=== PATIENT | male | born 1965 | race Caucasian/White ===

== ENCOUNTER 2019-08-23 18:57 | Emergency (ER) | payer SELFPAY ==
[2019-08-23 18:58] VITALS: BP 158/110; PULSE 74; RESP 16; TEMP 36.7; O2SAT 97; BMI 37.1
--- NOTE | 2019-08-23 19:49 | CT_ITS ---
STUDY: CT ABDOMEN AND PELVIS WITH CONTRAST REASON FOR EXAM: Male, 54 years old. PT STATED RT FLANK PAIN WITH LOWER ABDOM PAIN RADIATION DOSAGE (If Supplied By Facility): CTDIvol = ( 17.8 ) mGy, DLP = ( 1272.81 ) mGycm TECHNIQUE: Transaxial images were obtained from the dome of the diaphragm to the symphysis pubis without oral contrast. Oral and amp; IV Readi-CAT and amp; 100mL Isovue-300 was administered. Sagittal and coronal images were reconstructed. Individualized dose optimization techniques were used for this CT. COMPARISON: None. FINDINGS: Calcified granuloma in the right lower lobe. Lung bases are otherwise clear. Heart size is normal. Mild diffuse fatty infiltration of the liver. No focal lesion. Solitary stone in the neck of the gallbladder. No common duct dilation. The spleen and pancreas are unremarkable. The adrenal glands are normal. 2 cm low attenuation lesion in the lower pole of the left kidney. CT density measures 35 Hounsfield units. This is not consistent with a simple cyst. The left kidney is otherwise unremarkable. Mild right hydronephrosis. 8 mm lower pole right renal lesion is too small to characterize. Right kidney is otherwise unremarkable. There are 2 adjacent stones in the right ureteropelvic junction/proximal ureter measuring 5 x 4 x 3 mm. Right distal ureter is normal in course and caliber. No additional calculi are noted. The aorta is normal in caliber. There is no free fluid, free air, or organized collection. No bowel obstruction or inflammatory change. Diverticulosis. No acute diverticulitis. Normal appendix. Urinary bladder is nondistended. Normal abdominal wall. Normal osseous structures. CT/Abdomen/Pelvis WITH Contrast IMPRESSION: 1. Stones in the right UPJ/proximal ureter, with mild hydronephrosis. 2. Cholelithiasis. 3. Left renal low-attenuation lesion may represent complex cyst or solid nodule. Right lower pole lesion is too small to characterize. 4. Hepatic steatosis. 5. Old granulomatous disease. 6. Diverticulosis. Electronically Signed: Nicolasa Morgan MD at 22:03 EDT Tel , Service support ,
[2019-08-23] MEDS: Morphine 4 MG/ML Syringe IV ×2 (20:02→21:47)
[2019-08-23] MEDS: Ondansetron 4 MG/2 ML Vial IV (20:02)
[2019-08-23] MEDS: 0.9% Normal Saline 1,000 ML 1000 ML IV (20:02)
[2019-08-23 20:06] LABS: Absolute Lymphocyte Count 3.03 X10^3/uL (0.83-4.51); Absolute Neutrophil Count 8.8 X10^3/uL (2.0-7.7); Basophil# 0.09 X10^3/uL; Basophil% 0.7 % (0-1); Eosinophil# 0.41 X10^3/uL; Hematocrit 45.1 % (40-54); Hemoglobin 15.2 g/dL (13.0-16.5); Lymphocyte # 3.03 X10^3/ul (4.0); Lymphocyte % 22.4 % (19-41); Mean Corp Hgb Conc 33.7 g/dL (32-36); Mean Corpuscular Hgb 28.4 pg (27.0-32.0); Mean Corpuscular Volume 84.1 fL (80-94); Mean Platelet Vol. 9.9 fl (6.2-12.0); Monocyte# 1.14 X10^3/uL; Monocyte% 8.4 % (0-10); NRBC Flagged by Analyzer 0 % (0-5); Neutrophil # 8.78 X10^3/uL (2.7-7.7); Neutrophil % 65.1 % (47-70); Platelet Count 251 K/mm3 (150-450); RBC Distribution Width CV 13.2 % (11.6-14.6); RBC Distribution Width SD 40.5 fl (35.1-43.9); Red Blood Count 5.36 M/mm3 (4.6-6.2); White Blood Count 13.5 K/mm3 (4.4-11.0)
[2019-08-23 20:23] LABS: ALB/GLOB Ratio 1.4 RATIO (0.9-2.4); AST(SGOT) 19 U/L (15-37); Alanine Aminotransfer ALT/SGPT 27 U/L (16-61); Albumin, Serum 4.2 g/dL (3.2-5.0); Alkaline Phosphatase 86 U/L (45-117); Anion Gap 5 (5-15); BUN 18 mg/dL (7-18); BUN/Creat Ratio 16.7 RATIO (10-20); Calcium,Total 9.9 mg/dL (8.5-10.1); Chloride 108 mmol/L (98-107); Creatinine, Serum 1.08 mg/dL (0.70-1.30); EST Glomerular Filtration Rate 75 mL/min (>60); Est Glom Filt Rate - Afr Amer 91 mL/min (>60); Estimated Creatinine Clearance 68.92 ml/min; Glucose 95 mg/dL (74-106); Lipase 98 U/L (73-393); Protein, Total 7.2 g/dL (6.4-8.2); Sodium Level 142 mmol/L (136-145)
[2019-08-23 20:50] LABS: Bacteria 0 SEEN /hpf (None Seen); Squamous Epithelial Cells - UA 0 SEEN /hpf (0-5)
[2019-08-23 20:54] LABS: Color, Urine Yellow (Yellow); Glucose, Dipstick Normal (Normal); Ketone-Dipstick 5 mg/dl (Negative); Leukocyte Esterase-Dipstick Negative /ul (Negative); Nitrite-Dipstick Negative (Negative); Occult Blood-Urine 25 /ul (Negative); Protein-Dipstick 30 mg/dl (Negative); Urine Bilirubin Dipstick Negative (Negative); Urine Clarity Clear (Clear); Urine Urobilinogen 1 mg/dl (Normal)
[2019-08-23 21:00] LABS: Calcium Oxalate Crystals Ur RARE /hpf (<or=2+); Mucous, Urine 1+ /hpf (<or=2+); Red Blood Cells-Urine 0-5 SEEN /hpf (0-5); White Blood Cells 0 SEEN /hpf (0-5)
--- NOTE | 2019-08-23 21:18 | ED.VISSUMM ---
- ER Visit Summary Date of Service: 08/23/19 Chief Complaint: Flank and abdominal pain History of Present Illness: The patient is a 54 M patient reports he has right flank pain that radiates into her abdomen. It began yesterday. It was a severe pain yesterday was 10 on 10 severity. Reports he does seem to get better overnight and then returned again today. He describes as a cramping pain is 1010 at worst and 6 out of 10 currently. Is worsened by movement. Is relieved by ibuprofen Tylenol. Has been nauseated vomited twice. No blood in his emesis. No diarrhea. His last bowel was today. No hematochezia. No dysuria. Does report he has had frequent urination since the onset of this. He is never had anything like this before. Physical Examination: Vitals: Stable. Afebrile. General: Well-nourished and well-developed. Head: Normocephalic atraumatic. Neck: Supple, no lymphadenopathy. No JVD. Nontender. Cardiovascular: Regular rate and rhythm. No murmurs. Respiratory: No respiratory distress. Clear to auscultation bilaterally. Abdominal: Soft, mild right lower quadrant tenderness to palpation, nondistended, normal bowel sounds. No guarding, rebound, or peritoneal signs. Back: Nontender. No CVA tenderness. Extremities: Nontender, no edema. Skin: Normal color, no rash. Neurologic: Alert and oriented ?3. Cranial nerves II through XII are intact. Normal strength and sensation. Psych: Normal affect. Test Results: CBC shows a white count of 13.5. Chem-7 shows a chloride of 108. LFTs are normal. Lipase is normal. UA shows ketones and blood. Clinical Impression(s) from Imaging Studies Abdomen/Pelvis CT 08/23/19 19:49 IMPRESSION: 1. Stones in the right UPJ/proximal ureter, with mild hydronephrosis. 2. Cholelithiasis. 3. Left renal low-attenuation lesion may represent complex cyst or solid nodule. Right lower pole lesion is too small to characterize. 4. Hepatic steatosis. 5. Old granulomatous disease. 6. Diverticulosis. Electronically Signed: Nicolasa Morgan MD at 22:03 EDT Tel , Service support , Emergency Department Course and Treatment: Patient is treated morphine, Zofran, and Toradol IV. He is resting comfortably. Treatment Plan: Patient will be discharged with Percocet, naproxen, Zofran, and Flomax. Instructed to follow-up Dr. Mccann in 1 week if he has not passed the stone. Return the emergency department for any concerns or if he is unable to tolerate the pain. Disposition: To home in improved and stable condition. Impression: 1. Right ureterolithiasis. This note was generated with [employer] dictation software. It may contain incorrect words, spelling, and punctuation that were not noted in review of the chart prior to signing ED Disposition - Plan for ED Patient: Disposition: Home or Assisted Living Instructions: ED Renal Stone w Colic Prescriptions: Tamsulosin HCl [Flomax] 0.4 mg PO DAILY #7 cap Prescription Printed Naproxen [Naprosyn] 500 mg PO BID #14 tab Prescription Printed Oxycodone HCl/Acetaminophen [Percocet 5/325] 1 tab PO Q6H PRN PRN 5 Days #20 tab PRN Reason: Pain Score 6-10/10 Prescription Printed Ondansetron [Zofran Odt] 4 mg PO Q8H PRN PRN #10 tab PRN Reason: Nausea Prescription Printed Referrals: Jere Mccann MD [STAFF PHYSICIAN] - 1 Week if not improving
[2019-08-23 22:07] VITALS: PULSE 53; RESP 16; O2SAT 96
[2019-08-23] MEDS: Ketorolac 30 MG/ML Syringe IV (22:55)
[2019-08-23 23:00] VITALS: BP 145/85; PULSE 71; RESP 18; O2SAT 98
== END 2019-08-23 23:00 | disposition home or self-care (01) ==
LOC: ED 20:26
PROVIDERS: Emergency Provider Emergency Medicine
DX: N13.2 Hydronephrosis with renal and ureteral calculous obstruction (principal); R11.2 Nausea with vomiting, unspecified; R35.0 Frequency of micturition; F17.210 Nicotine dependence, cigarettes, uncomplicated
CPT/HCPCS: 74177; 80053; 81001; 83690; 85025; 96361; 96374; 96375; 96376; 99282; J7030; Q9967; A4216; J2405

== ENCOUNTER 2019-09-16 11:08 | Emergency (ER) | payer SELFPAY ==
[2019-09-16] VITALS (7 sets, daily range): BP systolic 130–166; BP diastolic 80–121; PULSE 65–72; RESP 14–20; TEMP 36.6; O2SAT 98–99; BMI 30.3
[2019-09-16] MEDS: Ziprasidone IM 20 MG/ML VIAL IM (11:20)
--- NOTE | 2019-09-16 11:21 | EKG12_ITS ---
Test Reason : MENTAL HEALTH Blood Pressure : / mmHG Vent. Rate : 049 BPM Atrial Rate : 049 BPM P-R Int : 166 ms QRS Dur : 104 ms QT Int : 434 ms P-R-T Axes : 041 -21 047 degrees QTc Int : 392 ms Sinus bradycardia Moderate voltage criteria for LVH, may be normal variant Nonspecific T wave abnormality Abnormal ECG When compared with ECG of 02-SEP-2005 09:30, Questionable change in QRS axis ST no longer elevated in Inferior leads Nonspecific T wave abnormality now evident in Anterolateral leads Confirmed by JORGE HOOVER, GRAEME ([id number]), news copy editor EVELINA SANTO ([id number]) on 09/25/2019 11:08:52 AM Referred By: NUSRAT Confirmed By:GRAEME PATEL MD
--- NOTE | 2019-09-16 11:22 | ED.RN ---
UPON ARRIVAL VIA EMS, PT IS AGITATED, YELLING AND RESISTANT TO CARE. 2 OFFICE RECEPTIONIST DEPUTIES AND VISITOR AT BEDSIDE. PT WILL NOT ALLOW DR TO EXAMINE HIM. REFUSING CARE. ORDER OBTAINED TO MEDICATE, MEDICATION GIVEN WITHOUT DIFFICULTY.
--- NOTE | 2019-09-16 11:22 | ED.VIS.GEN ---
History of Present Illness Chief Complaint: Mental Health Informant: Patient, Family, - - Police Narrative: Patient is a 54-year-old male with a past medical history of bipolar disorder who presents to the ED for agitation. Per the police a family member the patient had a gun pulled on them. Patient witnessed this and has had issues with his behavior since. He had a similar episode 20 years ago but has been very well controlled with his psychiatric disorders. He did have a recent medication change with Seroquel. Had Ativan filled recently. Patient does occasionally drink alcohol. He denies any other drug abuse. Patient is not cooperative with staff. He does put his legs up in order to not have the wrist bracelet placed on him or allow a physical exam. He is very argumentative. He is otherwise denying any other symptoms or will not answer questions about symptoms. Patient did receive 2 mg of Versed. He did not take his blood off no last night. Has not slept over the past 24 hours they believe. Just started the Seroquel yesterday. The family states that he has been wandering outside looking for papers. Past Medical History - Allergies and Home Meds Allergies/Adverse Reactions: Allergies No Known Allergies Allergy (Verified 09/16/19 11:15) Primary Care Physician: Care Physician,No Primary [Primary Care Provider] - Past Medical History: - - Bipolar Smoking Status: Current every day smoker Alcohol: Occasional Drugs: None Review of Systems ROS: Unable to Obtain Physical Exam Vital Signs/Narrative: Vital Signs Temp Pulse Resp BP Pulse Ox 09/16/19 11:09 97.8 F 72 18 166/121 H 98 General: Well nourished, Well developed Head: Normocephalic, Atraumatic Eyes: Perrl, EOMI ENT: Moist mucous membranes, No rhinorrhea Neck: Supple Cardiovascular: Regular rate, Regular rhythm Respiratory: No distress, - - Equal chest rise bilateral Abdomen: Soft, Nontender, Nondistended Extremities: Nontender, No edema Skin: Normal color, No rash Neurological: Alert, Cranial nerves II-XII grossly intact, Normal Strength Psychological: Agitated - Patient not following commands. He is argumentative with staff. Does not make sense in what he is saying at times. Other times able to answer questions appropriately. Not cooperative with exam. Diagnostic/Tx/Re-eval - EKG Initial EKG Interpretation: - - Rate of 49 bpm in a sinus bradycardia. Normal intervals with a QTC of 392. Mild left axis deviation. No significant ST elevations or depressions appreciated. No prior EKG for comparison. - Medical Decision Making Patient is a 54-year-old male with history of bipolar who was brought to the [facility] by police. He has been having agitated behavior over the past week. He has had some medication adjustments. His daughter is supposed to be bringing his list of medications and currently. Patient is not cooperative with staff. Is very argumentative. Patient received Geodon upon arrival due to the agitated state. He was refusing blood work and urinalysis. That time was given Ativan as well. Patient is much more cooperative and allowed EKG and blood work. Crisis was consulted and they do feel patient does need placement for psychiatric stabilization. The family was made aware of this and they do agree with this plan. Patient signed out to oncoming attending. Currently working on placement for the patient. He has been stable throughout ED stay. ED Disposition - Plan for ED Patient: Disposition: Psychiatric Hospital or Unit Diagnosis: Acute psychosis, Agitation Referrals: Care Physician,No Primary [Primary Care Provider] -
[2019-09-16] MEDS: LORazepam 2 MG/ML Syringe IM (13:07)
[2019-09-16 14:07] LABS: Absolute Lymphocyte Count 2.95 X10^3/uL (0.83-4.51); Absolute Neutrophil Count 3.7 X10^3/uL (2.0-7.7); Basophil# 0.05 X10^3/uL; Basophil% 0.7 % (0-1); Eosinophil# 0.15 X10^3/uL; Hematocrit 41.9 % (40-54); Hemoglobin 13.8 g/dL (13.0-16.5); Lymphocyte # 2.95 X10^3/ul (4.0); Lymphocyte % 39.7 % (19-41); Mean Corp Hgb Conc 32.9 g/dL (32-36); Mean Corpuscular Hgb 27.7 pg (27.0-32.0); Mean Platelet Vol. 10.1 fl (6.2-12.0); Monocyte# 0.54 X10^3/uL; Monocyte% 7.3 % (0-10); NRBC Flagged by Analyzer 0 % (0-5); Neutrophil # 3.73 X10^3/uL (2.7-7.7); Neutrophil % 50.2 % (47-70); Platelet Count 249 K/mm3 (150-450); RBC Distribution Width SD 39.1 fl (35.1-43.9); Red Blood Count 4.99 M/mm3 (4.6-6.2); White Blood Count 7.4 K/mm3 (4.4-11.0)
[2019-09-16 14:24] LABS: ALB/GLOB Ratio 1.4 RATIO (0.9-2.4); AST(SGOT) 32 U/L (15-37); Alanine Aminotransfer ALT/SGPT 48 U/L (16-61); Albumin, Serum 4.1 g/dL (3.2-5.0); Alkaline Phosphatase 79 U/L (45-117); Anion Gap 6 (5-15); BUN 26 mg/dL (7-18); BUN/Creat Ratio 27.1 RATIO (10-20); Calcium,Total 8.9 mg/dL (8.5-10.1); Chloride 108 mmol/L (98-107); Creatinine, Serum 0.96 mg/dL (0.70-1.30); EST Glomerular Filtration Rate 86 mL/min (>60); Est Glom Filt Rate - Afr Amer 104 mL/min (>60); Estimated Creatinine Clearance 88.72 ml/min; Globulin 2.9 g/dL (2.2-4.2); Glucose 97 mg/dL (74-106); Potassium 3.5 mmol/L (3.5-5.1); Sodium Level 141 mmol/L (136-145)
[2019-09-16 14:51] LABS: Acetaminophen (Tylenol) Level < 2.0 ug/mL (10.0-30.0); Salicylate 5.3 mg/dL (2.8-20.0)
--- NOTE | 2019-09-16 15:32 | CM.ED ---
SOCIAL WORK Patient is self-pay. Crisis to evaluate. Spoke with Carmelina from Crisis to update on referral. Per Carmelina, spoke with patient's yesterday and again today. Demographics and clinical information faxed at this time to Crisis. Plan: Crisis to evaluate for placement. Yojana Shanks, DISH MACHINE OPERATOR, CNC MACHINE SETTER
[2019-09-16 19:18] LABS: Squamous Epithelial Cells - UA 0 SEEN /hpf (0-5)
[2019-09-16 19:36] LABS: Amphetamine Urine VISTA NEGATIVE (<1000 ng/mL); Barbiturate Urine VISTA NEGATIVE (< 200 ng/mL); Benzodiazepine Urine VISTA POSITIVE (< 200 ng/mL); Cocaine Urine VISTA NEGATIVE (< 300 ng/mL); Ecstacy Urine VISTA NEGATIVE (< 500 ng/mL); Methadone Urine VISTA NEGATIVE (< 300 ng/mL); PCP Urine VISTA NEGATIVE (< 25 ng/mL); THC Urine VISTA NEGATIVE (< 50 ng/mL); Vista UDS pH Range 5
[2019-09-16 20:09] LABS: Color, Urine Yellow (Yellow); Glucose, Dipstick Normal (Normal); Ketone-Dipstick Negative (Negative); Leukocyte Esterase-Dipstick 100 /ul (Negative); Nitrite-Dipstick Negative (Negative); Occult Blood-Urine 10 /ul (Negative); Protein-Dipstick 15 mg/dl (Negative); Specific Gravity, Urine 1.025 (1.002-1.030); Urine Bilirubin Dipstick Negative (Negative); Urine Clarity Clear (Clear); Urine Urobilinogen 1 mg/dl (Normal)
[2019-09-16 20:33] LABS: Mucous, Urine 2+ /hpf (<or=2+)
[2019-09-16 20:34] LABS: White Blood Cells 5-10 SEEN /hpf (0-5)
[2019-09-16 20:36] LABS: Red Blood Cells-Urine 5-10 SEEN /hpf (0-5)
[2019-09-16 20:37] LABS: Bacteria RARE /hpf (None Seen)
[2019-09-16 20:38] LABS: Calcium Oxalate Crystals Ur RARE /hpf (<or=2+)
[2019-09-16 20:41] LABS: Hyaline Cast 0-5 SEEN /lpf (0-5)
--- NOTE | 2019-09-16 20:51 | NURSING ---
[facility] CALLED ASKING FOR AN EKG, NEW VITALS, TOX SCREEN, COVID QUESTIONAIR WHICH WAS ALL FAXED AT 2050
[2019-09-17] VITALS (7 sets, daily range): BP systolic 120–135; BP diastolic 68–78; PULSE 55–104; RESP 15–22; O2SAT 96–99
--- NOTE | 2019-09-17 12:15 | ED.RN ---
PT IS ACCEPTED TO [facility]; THEY WILL NOT HAVE A BED FOR HIM TODAY AND DOUBTFUL FOR TOMORROW PER [facility]
--- NOTE | 2019-09-17 13:47 | ED.DCSUM_ITS ---
- ER Visit Summary Date of Service: 09/17/19 Chief Complaint: [] History of Present Illness: The patient is a 54 M [] Physical Examination: [] Test Results: [] Emergency Department Course and Treatment: [] Treatment Plan: [] Disposition: [] Impression: [] This note was generated with [employer] dictation software. It may contain incorrect words, spelling, and punctuation that were not noted in review of the chart prior to signing ED Disposition - Plan for ED Patient: Disposition: Psychiatric Hospital or Unit Diagnosis: Acute psychosis, Agitation Instructions: ED Psychosis Referrals: Care Physician,No Primary [Primary Care Provider] - Counseling,Center [GROUP OF PHYSICIANS] - Keep Neyda appointment
== END 2019-09-17 14:01 | disposition home or self-care (01) ==
PROVIDERS: Emergency Provider Emergency Medicine
DX: F23 Brief psychotic disorder (principal); F31.9 Bipolar disorder, unspecified; F17.200 Nicotine dependence, unspecified, uncomplicated
CPT/HCPCS: 80053; 80307; 80320; 80329; 81001; 84484; 85025; 93005; 96372; 99285; G0480; J3486

== ENCOUNTER → 2022-06-30 | Outpatient (CLI) | payer OTHER, SELFPAY ==
[2022-06-30 18:52] LABS: AST(SGOT) 22 U/L (15-37); Alanine Aminotransfer ALT/SGPT 48 U/L (16-61); Albumin, Serum 4.3 g/dL (3.2-5.0); Alkaline Phosphatase 70 U/L (45-117); Bilirubin, Direct 0.11 mg/dL (0.00-0.30); Free T3 2.7 pg/mL (2.18-3.98); Globulin 3.3 g/dL (2.2-4.2); Protein, Total 7.6 g/dL (6.4-8.2); T4 Free Direct 0.78 ng/dL (0.76-1.46); Thyroid Stim Hormone (TSH) 2.43 uIU/mL (0.358-3.74)
== END | disposition home or self-care (01) ==
LOC: MTLAB 16:18
PROVIDERS: PCP Physician Assistant; Referring Provider Psychiatry & Neurology Psychiatry; Visit Provider Psychiatry & Neurology Psychiatry
DX: E03.9 Hypothyroidism, unspecified (principal)
CPT/HCPCS: 36415; 80076; 84439; 84443; 84481

== ENCOUNTER → 2022-08-05 | Outpatient (CLI) | payer OTHER, SELFPAY ==
[2022-08-05 13:41] LABS: Free T3 2.9 pg/mL (2.18-3.98); T4 Free Direct 0.96 ng/dL (0.76-1.46); Thyroid Stim Hormone (TSH) 2.35 uIU/mL (0.358-3.74)
== END | disposition home or self-care (01) ==
PROVIDERS: PCP Physician Assistant; Referring Provider Psychiatry & Neurology Psychiatry; Visit Provider Psychiatry & Neurology Psychiatry
DX: Z79.899 Other long term (current) drug therapy (principal)
CPT/HCPCS: 36415; 84439; 84443; 84481

== ENCOUNTER 2022-10-04 13:10 | Emergency (ER) | payer OTHER, SELFPAY ==
[2022-10-04 13:11] VITALS: BP 144/117; PULSE 55; RESP 18; TEMP 35.8; O2SAT 95; BMI 35.9
--- NOTE | 2022-10-04 13:23 | CT_ITS ---
INDICATION: LEFT SIDED AB PAIN EXAMINATION: CT ABDOMEN AND PELVIS WITHOUT CONTRAST - CT Abdomen And Pelvis W/O Contrast Injection TECHNIQUE: Helically acquired images were obtained of the abdomen and pelvis without oral or IV contrast. A radiation dose optimization technique was used for this scan. IV Contrast dosage and agent: None. Oral contrast: None. RADIATION DOSAGE (If Supplied By Facility): CTDIvol = ( 17.75 ) mGy, DLP = ( 975.68 ) mGycm COMPARISON: 08/23/2019. FINDINGS: LOWER CHEST: Lung bases are clear. No cardiomegaly or pericardial effusion. LIVER: Hepatic steatosis. No focal lesion is seen on this noncontrast examination. GALLBLADDER AND BILIARY TREE: 2 cm stone in the gallbladder neck unchanged. No intra- or extrahepatic biliary ductal dilation. PANCREAS: No focal cystic or solid mass. SPLEEN: Unremarkable. ADRENAL GLANDS: No nodules. KIDNEYS AND URETERS: #2 cm low-density lesion/cyst in the lower pole of the left kidney unchanged. No further follow-up exam is needed. Another small cyst in the right kidney. No evidence of hydronephrosis. Tiny nonobstructing stone in the right kidney. PERITONEUM: No ascites or free air. No other fluid collection. BOWEL: No evidence of acute appendicitis. Colonic diverticulosis without evidence of acute diverticulitis. No focal inflammatory change. LYMPH NODES: No enlarged mesenteric or retroperitoneal lymph nodes. VESSELS: Aorta is non-dilated. URINARY BLADDER: Unremarkable. REPRODUCTIVE ORGANS: Prostatic calcifications. No pelvic mass. ABDOMINAL WALL: Small umbilical hernia containing fat. BONES: No lytic or blastic abnormality. CT/Abdomen/Pelvis without Cont IMPRESSION: 1. Persistent stone in the gallbladder neck unchanged. 2. Diverticulosis without evidence of acute diverticulitis. 3. No focal acute inflammatory process. 4. Bilateral renal lesion/cysts unchanged. 5. Small umbilical hernia containing fat. Electronically Signed: Oscar Sierra MD at 14:40 EDT ,
--- NOTE | 2022-10-04 13:27 | EX.ED.DYSGE1 ---
HPI <NICOLE Ruiz - Last Filed: 10/04/22 16:56> History of Present Illness Chief Complaint: Abd Pain Narrative Narrative: Patient is a 57-year-old male with history of kidney stone, tobacco use, hyperlipidemia, anxiety presents to the emergency department with 5 days of left lower quadrant abdominal pain, left testicular pain. Patient states he did have some back pain is getting worse, he does have history of kidney stones he is concerned that he is having 1 now. Patient dates the pressure in his left testicle, left lower abdomen is severe. He states he has some difficulty urinating. He denies any vomiting however has nausea. [place] any fever or chills. PFSH <NICOLE Ruiz - Last Filed: 10/04/22 16:56> PFSH Home Medications alprazolam 1 mg tablet 1 mg PO QHS PRN PRN Anxiety 09/16/19 [History Last Taken Unknown] lamotrigine 25 mg tablet 25 mg PO DAILY 09/16/19 [History Last Taken Unknown] quetiapine 100 mg tablet 100 mg PO BREAKFAST 09/16/19 [History Last Taken Unknown] quetiapine 100 mg tablet 200 mg PO QHS 09/16/19 [History Last Taken Unknown] ondansetron 4 mg disintegrating tablet 4 mg PO Q8H PRN PRN Nausea #10 tabs 10/04/22 [Rx Last Taken Unknown] oxycodone-acetaminophen 5 mg-325 mg tablet (Percocet) 1 tab PO Q6H PRN pain 3 days #12 tabs 10/04/22 [Rx Last Taken Unknown] Allergy/AdvReac Type Severity Reaction Status Date / Time No Known Allergies Allergy Verified 09/16/19 11:15 Social History Smoking Status: Current every day smoker tobacco type: cigarettes ROS <NICOLE Ruiz - Last Filed: 10/04/22 16:56> ROS ED ROS Narrative Constitutional: Negative for fever, chills, weight loss, weakness Eyes: Negative for vision loss, vision change, double vision ENT: Negative for any sore throat, ear pain, congestion Cardiovascular: Negative for any chest pain, tightness, palpitations Respiratory: Negative for any cough, sputum production, hemoptysis, dyspnea, dyspnea on exertion, orthopnea Gastrointestinal: Negative for any nausea, vomiting, diarrhea, constipation, blood in stool, blood in vomit. Positive left lower abdominal pain : Negative for any urinary frequency, retention, blood in urine. Positive for dysuria, left testicular pain muscle skeletal: Negative for any muscle joint pain, stiffness, myalgias, arthralgias, neck pain, back pain Neurological: Negative for any headache, syncope, numbness or tingling, dizziness Skin: Negative for any rashes, lumps, itching, abrasions, lacerations Psychiatric: Negative for any depression, anxiety, stress, suicidal ideation, homicidal ideation Hematologic: Negative for any easy bruising, excessive bruising, easy bleeding Allergies: Negative for any eczema, hives, rash EXAM <NICOLE Ruiz - Last Filed: 10/04/22 16:56> Physical Exam Narrative Exam Narrative: Vital signs reviewed. HEET: Head normocephalic atraumatic, TMs clear bilaterally. Posterior pharynx is clear, moist mucous membranes. Nares clear bilaterally. Neck: Supple with no lymphadenopathy or tenderness. No signs of meningismus, negative jolt sign. Cardiac: Regular rate and rhythm no murmurs gallops or rubs, equal peripheral pulses bilaterally. Respiratory: Lungs clear to auscultation bilaterally. No chest tenderness. Abdomen: Soft, nondistended. No abdominal bruit or pulsatile masses. No hepatosplenomegaly. Patient does have tenderness to the left lower quadrant, left groin area. Extremities: No peripheral edema, no signs of gross trauma or deformity. Active full range of motion of all extremities. Neuro: Cranial nerves II through XII intact, no focal neurological deficits. Skin: Clean dry and intact with no rash, purpura, petechiae, vesicles or pustules. Backs/flank: No CVA tenderness, no midline spinal tenderness, no deformity. Psych: Normal mood and affect. No SI, HI or acute psychosis. : I did perform a testicular exam, patient's testicles show no redness, no inflammation. Patient has testicle pain on palpation. Const Vital Signs: 10/04/22 13:11 10/04/22 15:11 10/04/22 17:00 Temperature 96.4 F L Temperature Source Temporal Pulse Rate 55 L 89 78 Respiratory Rate 18 16 14 Blood Pressure 144/117 H 143/89 H 135/78 H Blood Pressure Mean 126 107 97 Pulse Ox 95 98 97 Oxygen Delivery Method Room Air Room Air Positive well nourished and well developed General Appearance ED: well developed <Dr. Mian Quiroz DO - Last Filed: 10/04/22 17:50> Physical Exam Const Vital Signs: 10/04/22 13:11 10/04/22 15:11 10/04/22 17:00 Temperature 96.4 F L Temperature Source Temporal Pulse Rate 55 L 89 78 Respiratory Rate 18 16 14 Blood Pressure 144/117 H 143/89 H 135/78 H Blood Pressure Mean 126 107 97 Pulse Ox 95 98 97 Oxygen Delivery Method Room Air Room Air MDM <NICOLE Ruiz - Last Filed: 10/04/22 16:56> MDM Lab Data Labs: Laboratory Results - last 24 hr 10/04/22 10/04/22 13:31 14:56 WBC 8.5 RBC 5.69 Hgb 16.2 Hct 48.1 MCV 84.5 MCH 28.5 MCHC 33.7 RDW Std Deviation 41.7 RDW Coeff of Amanda 13.5 Plt Count 280 MPV 9.6 Immature Gran % (Auto) 0.400 Neut % (Auto) 54.3 Lymph % (Auto) 33.1 Arroyo % (Auto) 6.4 Eos % (Auto) 4.7 Baso % (Auto) 1.1 H Absolute Neuts (auto) 4.6 Absolute Lymphs (auto) 2.81 Nucleated RBC % 0 Sodium 138 Potassium 4.2 Chloride 107 Carbon Dioxide 24.0 Anion Gap 7 BUN 23 H Creatinine 1.23 Estim Creat Clear Calc 62.56 Est GFR (MDRD) Af Amer 77 Est GFR (MDRD) Non-Af 64 BUN/Creatinine Ratio 18.7 Glucose 109 H Calcium 9.2 Total Bilirubin 0.40 AST 33 ALT 68 H Alkaline Phosphatase 78 Total Protein 7.5 Albumin 4.2 Globulin 3.3 Albumin/Globulin Ratio 1.3 Lipase 35 Urine Color Yellow Urine Clarity Clear Urine pH 6.0 Ur Specific [place] 1.020 Urine Protein 15 H Urine Glucose (UA) Normal Urine Ketones Negative Urine Occult Blood Negative Urine Nitrite Negative Urine Bilirubin Negative Urine Urobilinogen Normal Ur Leukocyte Esterase 25 H Urine RBC 0-5 SEEN Urine WBC 0-5 SEEN Ur Squamous Epith Cells 0 SEEN Urine Bacteria 0 SEEN Urine Mucus 0 SEEN Radiography Diagnostic Testing: Clinical Impression(s) from Imaging Studies Abdomen/Pelvis CT 10/04/22 13:23 IMPRESSION: 1. Persistent stone in the gallbladder neck unchanged. 2. Diverticulosis without evidence of acute diverticulitis. 3. No focal acute inflammatory process. 4. Bilateral renal lesion/cysts unchanged. 5. Small umbilical hernia containing fat. Electronically Signed: Oscar Sierra MD at 14:40 EDT , Testicular Ultrasound 10/04/22 14:56 IMPRESSION: Normal bilateral testicles. Electronically Signed: Dk Jordan MD at 16:28 EDT , Additional Tests and Interventions Additional Tests or Interventions: Patient appears to be in mild discomfort secondary to left lower abdominal pain, left testicular pain. I am concerned for kidney stone, patient appears nontoxic. Patient received CT scan of the abdomen pelvis with no contrast. Patient received IV fluids, Zofran, Toradol, morphine. Basic laboratory will be drawn as well as a urinalysis. All radiologic examinations were read, reviewed by the emergency department attending. From these reads, a plan of care will be put in place. Patient CT scan shows persistent stone in the gallbladder neck unchanged. Diverticulosis without evidence of diverticulitis. No focal acute inflammatory process. Bilateral renal lesion/cyst unchanged. Small umbilical hernia. No acute obstructing uropathy. Patient's laboratory values were unremarkable, patient CBC was unremarkable, chemistries were unremarkable. Patient's urinalysis is in process. Secondary to there being no acute pathology in the abdomen pelvis CT, patient will receive an ultrasound of the testicles concerning for any inflammatory pathology, epididymitis, vascular insufficiency Patient's testicular ultrasound was grossly unremarkable. Normal testicles. No evidence of any epididymitis, inflammation, vascular issues. At this time, the patient's cause of pain is unknown. Likely patient had a pulled muscle. However patient does need to follow-up outpatient. Patient given Percocet for home as well as Zofran. He will also use ibuprofen at home. Instructed return for any worsening symptoms. Patient is happy with the plan of care and is stable for discharge. ED attending note: I evaluated the patient in conjunction with the VIRGILIO. I agree with his/her statements and above findings. I have personally performed a face to face assessment of the patient and have reviewed the VIRGILIO Note. I performed a substantive portion of the visit including all aspects of the following. I personally saw the patient performed chart review, physical exam, reviewed labs, imaging (if obtained), and formulated a treatment and management plan. Brief history: 57-year-old male here with left-sided flank/abdominal/testicle pain. Exam: Nursing triage notes reviewed, Vital signs reviewed Constitutional: please see mdm HENT: MMM Eyes: Pupils equal round and reactive to light, Extraocular muscles intact Neck: No stridor, no JVD, full neck ROM Lungs: Clear to auscultation, No wheezing or rales. No increased work of breathing, no conversational dyspnea, no accessory muscle use, no nasal flaring. No respiratory distress noted Heart: Regular rate and rhythm, No murmurs, No rubs and No gallops, 2+ distal pulses (radial, femoral, posterior tibial) in all extremities Abdomen: Soft, there is no tenderness, rigidity, rebound or guarding, no obvious peritoneal signs, no palpable pulsatile abdominal masses, no auscultated abdominal bruit : No CVAT, normal lie, TTP over left testicle, intact cremaster reflex. There is no obvious swelling to the left testicle in comparison to the right. There is no urethral discharge. There is no obvious rashes or other lesions. Extremities: No edema Neuro: No focal neurological deficits, cranial nerves II through XII intact, 5/5 strength in all extremities. Intact sensation to light touch in all extremities, 2+ reflexes bilateral patella dens. Normal gait. No ataxia. Skin: No rash or lesions noted MDM/plan: Chief Complaint: Flank pain, abdominal pain, testicular pain External records reviewed: [] Factors affecting care: [] Social determinants of health: [] History obtained from others: The patient's MDM narrative: Patient was hemodynamically stable, afebrile, nontoxic-appearing. Exam without abdominal tenderness however there is left-sided testicular tenderness. I considered the following differential diagnosis: AAA, small bowel obstruction, abdominal perforation, appendicitis, pancreatitis, hepatobiliary pathology (acute cholecystitis), mesenteric ischemia, abnormalities such as testicular torsion, orchitis, epididymitis, hydrocele, testicular mass We obtained a broad lab and imaging work-up to further elucidate the etiology the patient complaints. To the patient symptomatically with Toradol, morphine, Zofran and normal saline. Initial CT showed no evidence of acute surgical abdominal pathology. Repeat exam showed no abdominal tenderness or peritoneal signs however there was left-sided testicular tenderness. Given this we added on a scrotal ultrasound to rule out torsion, orchitis, mass, hydrocele or epididymitis. We are awaiting results of ultrasound. We will determine final disposition based on ultrasound results, reevaluation, vital sign evaluation, lab interpretation and shared decision making. Shared decision making: I will have a discussion with the patient and or visitors regarding risk/benefits of further testing or admission. They will be made aware of of the risk/benefits inherent in this decision they will be given the opportunity to voice understanding. Consults: Potentially urology if needed pending results of ultrasound <Dr. Mian Quiroz, DO - Last Filed: 10/04/22 17:50> [facility] Lab Data Labs: Laboratory Results - last 24 hr 10/04/22 10/04/22 13:31 14:56 WBC 8.5 RBC 5.69 Hgb 16.2 Hct 48.1 MCV 84.5 MCH 28.5 MCHC 33.7 RDW Std Deviation 41.7 RDW Coeff of Amanda 13.5 Plt Count 280 MPV 9.6 Immature Gran % (Auto) 0.400 Neut % (Auto) 54.3 Lymph % (Auto) 33.1 [place]o % (Auto) 6.4 Eos % (Auto) 4.7 Baso % (Auto) 1.1 H Absolute Neuts (auto) 4.6 Absolute Lymphs (auto) 2.81 Nucleated RBC % 0 Sodium 138 Potassium 4.2 Chloride 107 Carbon Dioxide 24.0 Anion Gap 7 BUN 23 H Creatinine 1.23 Estim Creat Clear Calc 62.56 Est GFR (MDRD) Af Amer 77 Est GFR (MDRD) Non-Af 64 BUN/Creatinine Ratio 18.7 Glucose 109 H Calcium 9.2 Total Bilirubin 0.40 AST 33 ALT 68 H Alkaline Phosphatase 78 Total Protein 7.5 Albumin 4.2 Globulin 3.3 Albumin/Globulin Ratio 1.3 Lipase 35 Urine Color Yellow Urine Clarity Clear Urine pH 6.0 Ur Specific [place] 1.020 Urine Protein 15 H Urine Glucose (UA) Normal Urine Ketones Negative Urine Occult Blood Negative Urine Nitrite Negative Urine Bilirubin Negative Urine Urobilinogen Normal Ur Leukocyte Esterase 25 H Urine RBC 0-5 SEEN Urine WBC 0-5 SEEN Ur Squamous Epith Cells 0 SEEN Urine Bacteria 0 SEEN Urine Mucus 0 SEEN Radiography Diagnostic Testing: Clinical Impression(s) from Imaging Studies Abdomen/Pelvis CT 10/04/22 13:23 IMPRESSION: 1. Persistent stone in the gallbladder neck unchanged. 2. Diverticulosis without evidence of acute diverticulitis. 3. No focal acute inflammatory process. 4. Bilateral renal lesion/cysts unchanged. 5. Small umbilical hernia containing fat. Electronically Signed: Oscar Sierra MD at 14:40 EDT , Testicular Ultrasound 10/04/22 14:56 IMPRESSION: Normal bilateral testicles. Electronically Signed: Dk Jordan MD at 16:28 EDT , Additional Tests and Interventions Additional Tests or Interventions: Patient appears to be in mild discomfort secondary to left lower abdominal pain, left testicular pain. I am concerned for kidney stone, patient appears nontoxic. Patient received CT scan of the abdomen pelvis with no contrast. Patient received IV fluids, Zofran, Toradol, morphine. Basic laboratory will be drawn as well as a urinalysis. All radiologic examinations were read, reviewed by the emergency department attending. From these reads, a plan of care will be put in place. Patient CT scan shows persistent stone in the gallbladder neck unchanged. Diverticulosis without evidence of diverticulitis. No focal acute inflammatory process. Bilateral renal lesion/cyst unchanged. Small umbilical hernia. No acute obstructing uropathy. Patient's laboratory values were unremarkable, patient CBC was unremarkable, chemistries were unremarkable. Patient's urinalysis is in process. Secondary to there being no acute pathology in the abdomen pelvis CT, patient will receive an ultrasound of the testicles concerning for any inflammatory pathology, epididymitis, vascular insufficiency Patient's testicular ultrasound was grossly unremarkable. Normal testicles. No evidence of any epididymitis, inflammation, vascular issues. At this time, the patient's cause of pain is unknown. Likely patient had a pulled muscle. However patient does need to follow-up outpatient. Patient given Percocet for home as well as Zofran. He will also use ibuprofen at home. Instructed return for any worsening symptoms. Patient is happy with the plan of care and is stable for discharge. ED attending note: I evaluated the patient in conjunction with the VIRGILIO. I agree with his/her statements and above findings. I have personally performed a face to face assessment of the patient and have reviewed the VIRGILIO Note. I performed a substantive portion of the visit including all aspects of the following. I personally saw the patient performed chart review, physical exam, reviewed labs, imaging (if obtained), and formulated a treatment and management plan. Brief history: 57-year-old male here with left-sided flank/abdominal/testicle pain. Exam: Nursing triage notes reviewed, Vital signs reviewed Constitutional: please see mdm HENT: MMM Eyes: Pupils equal round and reactive to light, Extraocular muscles intact Neck: No stridor, no JVD, full neck ROM Lungs: Clear to auscultation, No wheezing or rales. No increased work of breathing, no conversational dyspnea, no accessory muscle use, no nasal flaring. No respiratory distress noted Heart: Regular rate and rhythm, No murmurs, No rubs and No gallops, 2+ distal pulses (radial, femoral, posterior tibial) in all extremities Abdomen: Soft, there is no tenderness, rigidity, rebound or guarding, no obvious peritoneal signs, no palpable pulsatile abdominal masses, no auscultated abdominal bruit : No CVAT, normal lie, TTP over left testicle, intact cremaster reflex. There is no obvious swelling to the left testicle in comparison to the right. There is no urethral discharge. There is no obvious rashes or other lesions. Extremities: No edema Neuro: No focal neurological deficits, cranial nerves II through XII intact, 5/5 strength in all extremities. Intact sensation to light touch in all extremities, 2+ reflexes bilateral patella dens. Normal gait. No ataxia. Skin: No rash or lesions noted MDM/plan: Chief Complaint: Flank pain, abdominal pain, testicular pain History obtained from others: The patient's MDM narrative: Patient was hemodynamically stable, afebrile, nontoxic-appearing. Exam without abdominal tenderness however there is left-sided testicular tenderness. I considered the following differential diagnosis: AAA, small bowel obstruction, abdominal perforation, appendicitis, pancreatitis, hepatobiliary pathology (acute cholecystitis), mesenteric ischemia, abnormalities such as testicular torsion, orchitis, epididymitis, hydrocele, testicular mass We obtained a broad lab and imaging work-up to further elucidate the etiology the patient complaints. To the patient symptomatically with Toradol, morphine, Zofran and normal saline. Initial CT showed no evidence of acute surgical abdominal pathology. Repeat exam showed no abdominal tenderness or peritoneal signs however there was left-sided testicular tenderness. Given this we added on a scrotal ultrasound to rule out torsion, orchitis, mass, hydrocele or epididymitis. We are awaiting results of ultrasound. We will determine final disposition based on ultrasound results, reevaluation, vital sign evaluation, lab interpretation and shared decision making. Shared decision making: I will have a discussion with the patient and or visitors regarding risk/benefits of further testing or admission. They will be made aware of of the risk/benefits inherent in this decision they will be given the opportunity to voice understanding. Consults: Potentially urology if needed pending results of ultrasound Discharge Plan Triage Chief Complaint: Abd Pain ED Midlevel Provider: Jerry Guerrero ED Provider: Mian Quiroz Dx/Rx/DC Orders Clinical Impression: Groin pain, Abdominal pain Instructions: Abdominal Pain, ED Pain, Acute, Uncertain Cause Prescriptions: New ondansetron 4 mg tablet,disintegrating 4 mg PO Q8H PRN PRN (Reason: Nausea) Qty: 10 0RF oxycodone-acetaminophen [Percocet] 5-325 mg tablet 1 tab PO Q6H PRN (Reason: pain) 3 Days Qty: 12 0RF No Action alprazolam 1 MG tablet 1 mg PO QHS PRN PRN (Reason: Anxiety) quetiapine 100 MG tablet 100 mg PO BREAKFAST quetiapine 100 MG tablet 200 mg PO QHS lamotrigine 25 MG tablet 25 mg PO DAILY Primary Care Provider: Mya Aparicio Referrals: Mya Aparicio PA [Primary Care Provider] - Activity Restrictions/Additional Instructions: You had a full work-up today. You had a CT scan of the abdomen pelvis, you had testicular ultrasound. No acute finding. This does not mean something is not wrong. Please follow-up with your primary care provider for further work-up. Take pain medicine as needed. Disposition Disposition: Home, Self Care Discharge Date/Time: 10/04/22 17:10
[2022-10-04] MEDS: Ondansetron 4 MG/2 ML Vial IV (13:32)
[2022-10-04] MEDS: Ketorolac 15 MG/ML Vial IV (13:32)
[2022-10-04] MEDS: Morphine 4 MG/ML Syringe IV (13:33)
[2022-10-04] MEDS: 0.9% Normal Saline 1,000 ML 1000 ML IV (13:33)
[2022-10-04 13:40] LABS: Absolute Lymphocyte Count 2.81 X10^3/uL (0.83-4.51); Absolute Neutrophil Count 4.6 X10^3/uL (2.0-7.7); Basophil# 0.09 X10^3/uL; Basophil% 1.1 % (0-1); Eosinophils% 4.7 % (0-5); Hematocrit 48.1 % (40-54); Hemoglobin 16.2 g/dL (13.0-16.5); Lymphocyte # 2.81 X10^3/ul (0.83-4.51); Lymphocyte % 33.1 % (19-41); Mean Corp Hgb Conc 33.7 g/dL (32-36); Mean Corpuscular Hgb 28.5 pg (27.0-32.0); Mean Corpuscular Volume 84.5 fL (80-94); Mean Platelet Vol. 9.6 fl (6.2-12.0); Monocyte# 0.54 X10^3/uL; Monocyte% 6.4 % (0-10); NRBC Flagged by Analyzer 0 % (0-5); Neutrophil # 4.61 X10^3/uL (2.7-7.7); Neutrophil % 54.3 % (47-70); Platelet Count 280 K/mm3 (150-450); RBC Distribution Width CV 13.5 % (11.6-14.6); RBC Distribution Width SD 41.7 fl (35.1-43.9); Red Blood Count 5.69 M/mm3 (4.6-6.2); White Blood Count 8.5 K/mm3 (4.4-11.0)
[2022-10-04 13:57] LABS: ALB/GLOB Ratio 1.3 RATIO (0.9-2.4); AST(SGOT) 33 U/L (15-37); Alanine Aminotransfer ALT/SGPT 68 U/L (16-61); Albumin, Serum 4.2 g/dL (3.2-5.0); Alkaline Phosphatase 78 U/L (45-117); Anion Gap 7 (5-15); BUN 23 mg/dL (7-18); BUN/Creat Ratio 18.7 RATIO (10-20); Calcium,Total 9.2 mg/dL (8.5-10.1); Chloride 107 mmol/L (98-107); Creatinine, Serum 1.23 mg/dL (0.70-1.30); EST Glomerular Filtration Rate 64 mL/min (>60); Est Glom Filt Rate - Afr Amer 77 mL/min (>60); Estimated Creatinine Clearance 62.56 ml/min; Globulin 3.3 g/dL (2.2-4.2); Glucose 109 mg/dL (74-106); Lipase 35 U/L (13-75); Potassium 4.2 mmol/L (3.5-5.1); Protein, Total 7.5 g/dL (6.4-8.2); Sodium Level 138 mmol/L (136-145)
--- NOTE | 2022-10-04 14:56 | US_ITS ---
STUDY: SCROTUM ULTRASOUND REASON FOR EXAM: Male, 57 years old. testicular pain TECHNIQUE: Ultrasound evaluation of the scrotum was performed with color Doppler and static royal-scale imaging. COMPARISON: None. FINDINGS: RIGHT TESTICLE INTRATESTICULAR: There is a normal size of the right testicle. The right testicle measures 4.2 x 2.4 x 2.1 cm. There is a homogenous echotexture. There is normal arterial and normal venous vascularity. There is no demonstrated right testicular mass or cyst. EXTRATESTICULAR: The epididymis is normal in size. The epididymis head measures 1.1 cm. There is normal vascularity of the epididymis. There is no demonstrated epididymal cystic structure. There is no demonstrated hydrocele. There is no demonstrated varicocele. There is no demonstrated extratesticular mass or cyst. LEFT TESTICLE INTRATESTICULAR: There is a normal size of the left testicle. The left testicle measures 3.7 x 2.5 x 2.2 cm. There is a homogenous echotexture. There is normal arterial and normal venous vascularity. There is no demonstrated left testicular mass or cyst. EXTRATESTICULAR: The epididymis is normal in size. The epididymis head measures 1.2 cm. There is normal vascularity of the epididymis. There is no demonstrated epididymal cystic structure. There is no demonstrated hydrocele. There is no demonstrated varicocele. There is no demonstrated extratesticular mass or cyst. US/Testicular with Arterial Flow IMPRESSION: Normal bilateral testicles. Electronically Signed: Dk Jordan MD at 16:28 EDT ,
[2022-10-04 15:01] LABS: Bacteria 0 SEEN /hpf (None Seen); Mucous, Urine 0 SEEN /hpf (<or=2+); Squamous Epithelial Cells - UA 0 SEEN /hpf (0-5)
[2022-10-04 15:07] LABS: Color, Urine Yellow (Yellow); Glucose, Dipstick Normal (Normal); Ketone-Dipstick Negative (Negative); Leukocyte Esterase-Dipstick 25 /ul (Negative); Nitrite-Dipstick Negative (Negative); Occult Blood-Urine Negative /ul (Negative); Protein-Dipstick 15 mg/dl (Negative); Urine Bilirubin Dipstick Negative (Negative); Urine Clarity Clear (Clear); Urine Urobilinogen Normal (Normal)
[2022-10-04 15:11] VITALS: BP 143/89; PULSE 89; RESP 16; O2SAT 98
[2022-10-04 15:37] LABS: Red Blood Cells-Urine 0-5 SEEN /hpf (0-5); White Blood Cells 0-5 SEEN /hpf (0-5)
[2022-10-04 17:00] VITALS: BP 135/78; PULSE 78; RESP 14; O2SAT 97
== END 2022-10-04 17:10 | disposition home or self-care (01) ==
PROVIDERS: Nurse Practitioner; Emergency Provider Emergency Medicine; PCP Physician Assistant; Visit Provider Emergency Medicine
DX: R10.32 Left lower quadrant pain (principal); F41.9 Anxiety disorder, unspecified; R11.0 Nausea; E78.5 Hyperlipidemia, unspecified; F17.210 Nicotine dependence, cigarettes, uncomplicated; Z79.899 Other long term (current) drug therapy; N50.812 Left testicular pain
CPT/HCPCS: 74176; 76870; 80053; 81001; 83690; 85025; 93976; 96361; 96374; 96375; 99283; J7030; J2405

== ENCOUNTER → 2022-11-26 | Outpatient (CLI) | payer OTHER, SELFPAY ==
[2022-11-26 18:26] LABS: Free T3 2.7 pg/mL (2.18-3.98); T4 Free Direct 0.76 ng/dL (0.76-1.46); Thyroid Stim Hormone (TSH) 1.18 uIU/mL (0.358-3.74)
== END | disposition home or self-care (01) ==
LOC: MTLAB 15:31
PROVIDERS: PCP Physician Assistant; Visit Provider Psychiatry & Neurology Psychiatry
DX: E03.9 Hypothyroidism, unspecified (principal)
CPT/HCPCS: 36415; 84439; 84443; 84481